=== PATIENT | female | born 1980 | race Caucasian/White ===

== ENCOUNTER 2018-01-09 20:24 | Inpatient (IN) | payer MEDICAID, OTHER ==
[~2018-01-09] VITALS: Ht 188 cm; Wt 149.5 kg
[2018-01-09] MEDS ORDERED: OXYTOCIN 30U/ 0.9% NaCL 500ML 500 ML IV ONE (20:49)
[2018-01-09] MEDS ORDERED: OXYTOCIN 30U/ 0.9% NaCL 500ML 500 ML IV PRN (20:49)
[2018-01-09] MEDS ORDERED: LACTATED RINGERS 1,000 ML IV SCH ×3 (20:49→22:22)
[2018-01-09] MEDS ORDERED: D5%-LACTATED RINGERS 1,000 ML IV SCH (20:49)
[2018-01-09] MEDS ORDERED: NEWBORN KIT ONE (20:55)
[2018-01-09] MEDS ORDERED: FENTANYL/BUPIV./NS/PF 250 ML EPIDCONT SCH ×2 (20:58→22:22)
[2018-01-09] MEDS ORDERED: SODIUM CITRATE/CITRIC ACID 30 ML UDC PO PRN (21:00)
[2018-01-09] MEDS ORDERED: LACTATED RINGERS 1,000 ML IVBOLUS PRN (21:00)
[2018-01-09] MEDS ORDERED: CALCIUM CARBONATE 500 MG TAB.CHEW PO PRN (21:00)
[2018-01-09] MEDS ORDERED: ONDANSETRON 2MG/ML, 2ML IVPush PRN ×2 (21:00→22:30)
[2018-01-09] MEDS ORDERED: FENTANYL PF 100 MCG/2ML IV PRN (21:00)
[2018-01-09] MEDS ORDERED: FENTANYL PF 100 MCG/2ML IVPush PRN (21:00)
[2018-01-09] MEDS ORDERED: METOCLOPRAMIDE 5 MG/ML, 2ML IVPush PRN (21:00)
[2018-01-09] MEDS ORDERED: TERBUTALINE 1 MG/ML, 1ML IVPush PRN (21:00)
[2018-01-09 21:09] LABS: BASOPHILS # (AUTO) 0.13 x10^3/uL (0-0.1); BASOPHILS % (AUTO) 1 % (0-1); EOSINOPHILS # (AUTO) 0.03 x10^3/uL (0-0.4); EOSINOPHILS % (AUTO) 0 % (1-7); LYMPHOCYTES # (AUTO) 1.91 x10^3/uL (1-3.4); LYMPHOCYTES % (AUTO) 18 % (22-44); MD NO; MEAN CORPUSCULAR HGB CONC 33.6 g/dL (32.4-35.8); MEAN CORPUSCULAR VOLUME 92.1 fL (80-100); MEAN PLATELET VOLUME 10.5 fL (7.4-10.4); MONOCYTES # (AUTO) 0.55 x10^3/uL (0.2-0.8); MONOCYTES % (AUTO) 5 % (2-9); NEUTROPHILS # (AUTO) 8.18 x10^3/uL (1.8-6.8); NEUTROPHILS % (AUTO) 76 % (42-75); PLATELET COUNT 173 x10^3/uL (130-400); RED BLOOD COUNT 3.73 x10^6/uL (3.82-5.3); RED CELL DISTRIBUTION WIDTH 14.4 % (9.6-15.2)
[2018-01-09] MEDS ORDERED: OXYTOCIN 30U/ 0.9% NaCL 500ML 500 ML ONE (21:20)
[2018-01-09] MEDS ORDERED: MISOPROSTOL 200 MCG TABLET ONE (21:20)
[2018-01-09] MEDS ORDERED: LIDOCAINE/PF 1%, 30ML ONE (21:20)
[2018-01-09] MEDS ORDERED: FENTANYL PF 500 MCG, BUPIVACAINE/PF 0.5%, 30ML 62.5 ML in SODIUM CHLORIDE 0.9% 177.5 ML EPIDCONT SCH (21:30)
[2018-01-09] MEDS ORDERED: FENTANYL PF 100 MCG/2ML ONE (21:42)
[2018-01-09] MEDS ORDERED: BUPIVACAINE 0.25% ONE (21:43)
[2018-01-09] MEDS ORDERED: LIDOCAINE/PF 1.5%-EPI 1:200K, 30ML ONE (21:46)
[2018-01-09] MEDS ORDERED: EPHEDRINE 50 MG/ML, 1ML IVPush PRN (22:30)
[2018-01-10] MEDS ORDERED: IRON1TAB PO (00:11)
[2018-01-10] MEDS ORDERED: CALC-525 PO (00:11)
[2018-01-10] MEDS ORDERED: CETI10CA PO (00:11)
[2018-01-10] MEDS ORDERED: PREN-59 PO (00:11)
[2018-01-10] MEDS ORDERED: SERT50TA PO (00:11)
[2018-01-10] MEDS ORDERED: ONDANSETRON 2MG/ML, 2ML ONE (02:11)
[2018-01-10] MEDS ORDERED: TERBUTALINE 1 MG/ML, 1ML ONE (04:30)
[2018-01-10] MEDS ORDERED: DOCUSATE 100 MG CAPSULE PO PRN (05:30)
[2018-01-10] MEDS ORDERED: MISOPROSTOL 200 MCG TABLET PR PRN (05:30)
[2018-01-10] MEDS ORDERED: CARBOPROST TROMETHAMINE 250 MCG/ML, 1ML IM PRN (05:30)
[2018-01-10] MEDS ORDERED: METHYLERGONOVINE 0.2 MG/ML IM PRN (05:30)
[2018-01-10] MEDS ORDERED: ONDANSETRON 2MG/ML, 2ML IV PRN (05:30)
[2018-01-10] MEDS ORDERED: GLYCERIN ADULT SUPP PR PRN (05:30)
[2018-01-10] MEDS ORDERED: OXYcodone IR 5MG TABLET PO PRN (05:30)
[2018-01-10] MEDS ORDERED: ACETAMINOPHEN 325 MG TABLET PO PRN (05:30)
[2018-01-10] MEDS ORDERED: OXYcodone/APAP 5/325MG TABLET PO PRN (05:30)
[2018-01-10] MEDS ORDERED: BISACODYL 10 MG SUPP PR PRN (05:30)
[2018-01-10] MEDS ORDERED: OXYTOCIN 30U/ 0.9% NaCL 500ML 500 ML ONE (06:04)
[2018-01-10] MEDS: OXYTOCIN 30U/ 0.9% NaCL 500ML 500 ML IV SCH ×2 (06:06→15:30)
[2018-01-10] MEDS ORDERED: IBUPROFEN 600 MG TABLET ONE (08:13)
[2018-01-10] MEDS: IBUPROFEN 600 MG TABLET PO PRN ×3 (08:15→21:09)
[2018-01-10 09:31] VITALS: BP 127/70
[2018-01-10] MEDS: PRENATAL VIT/IRON/FA 1 EACH TABLET PO SCH (09:54)
[2018-01-10 12:00] VITALS: BP 122/68
[2018-01-10 12:58] LABS: MEAN CORPUSCULAR HEMOGLOBIN 30.2 pg (27.0-34.8); MEAN CORPUSCULAR VOLUME 91.6 fL (80-100); RED BLOOD COUNT 3.39 x10^6/uL (3.82-5.3); RED CELL DISTRIBUTION WIDTH 14.3 % (9.6-15.2)
[2018-01-10 13:12] LABS: BASOPHILS # (AUTO) 0.04 x10^3/uL (0-0.1); BASOPHILS % (AUTO) 0 % (0-1); EOSINOPHILS # (AUTO) 0.03 x10^3/uL (0-0.4); EOSINOPHILS % (AUTO) 0 % (1-7); LYMPHOCYTES % (AUTO) 14 % (22-44); MD SCAN; MEAN PLATELET VOLUME 10.4 fL (7.4-10.4); MONOCYTES # (AUTO) 0.55 x10^3/uL (0.2-0.8); MONOCYTES % (AUTO) 5 % (2-9); NEUTROPHILS # (AUTO) 8.49 x10^3/uL (1.8-6.8); NEUTROPHILS % (AUTO) 80 % (42-75); PLATELET COUNT 137 x10^3/uL (130-400)
[2018-01-10 16:00] VITALS: BP 108/69
[2018-01-10 19:40] VITALS: BP 114/65
[2018-01-11 00:35] VITALS: BP 133/92
[2018-01-11] MEDS: OXYTOCIN 30U/ 0.9% NaCL 500ML 500 ML IV SCH ×2 (01:30→03:18)
[2018-01-11 05:15] VITALS: BP 124/79
[2018-01-11] MEDS: IBUPROFEN 600 MG TABLET PO PRN ×2 (05:26→12:30)
[2018-01-11] MEDS: PRENATAL VIT/IRON/FA 1 EACH TABLET PO SCH (09:41)
[2018-01-11 09:49] VITALS: BP 137/89
[2018-01-11] MEDS ORDERED: IBUP-1222 PO (11:03)
[2018-01-11] MEDS ORDERED: DOCU-131 PO (11:12)
[2018-01-11] MEDS ORDERED: MEASLES,MUMPS&RUBELLA VACC/PF 0.5 ML SQ-VACC ONE (13:30)
== END 2018-01-11 14:45 | disposition home or self-care (01) | DRG 775 ==
LOC: LDOP 20:24 → LDIP 20:51 → 2NW 01-10 09:28
PROVIDERS: ADMIT Obstetrics & Gynecology; ATTEND Obstetrics & Gynecology
PROC: 10E0XZZ Delivery of Products of Conception, External Approach (ICD-10-PCS; principal; 2018-01-10)
PROC: 3E0R3BZ Introduction of Anesthetic Agent into Spinal Canal, Percutaneous Approach (ICD-10-PCS; 2018-01-10)
PROC: 00HU33Z Insertion of Infusion Device into Spinal Canal, Percutaneous Approach (ICD-10-PCS; 2018-01-10)
PROC: 10907ZC Drainage of Amniotic Fluid, Therapeutic from Products of Conception, Via Natural or Artificial Opening (ICD-10-PCS; 2018-01-10)
PROC: 4A1H74Z Monitoring of Products of Conception, Cardiac Electrical Activity, Via Natural or Artificial Opening (ICD-10-PCS; 2018-01-10)
PROC: 10H07YZ Insertion of Other Device into Products of Conception, Via Natural or Artificial Opening (ICD-10-PCS; 2018-01-10)
PROC: 0W8NXZZ Division of Female Perineum, External Approach (ICD-10-PCS; 2018-01-10)
PROC: 0UQGXZZ Repair Vagina, External Approach (ICD-10-PCS; 2018-01-10)
DX: O69.1XX0 Labor and delivery complicated by cord around neck, with compression, not applicable or unspecified (principal); Z68.41 Body mass index [BMI] 40.0-44.9, adult; O71.4 Obstetric high vaginal laceration alone; O99.214 Obesity complicating childbirth; E66.01 Morbid (severe) obesity due to excess calories; O77.0 Labor and delivery complicated by meconium in amniotic fluid; O76 Abnormality in fetal heart rate and rhythm complicating labor and delivery; Z3A.39 39 weeks gestation of pregnancy; Z37.0 Single live birth
CPT/HCPCS: 36415; 82803; 85025; 86850; 86900; J2405; J3010; J3490; J2590; J7050; J7120